=== PATIENT | female | born 1960 | race Hispanic/Latino ===

== ENCOUNTER 2022-11-16 19:15 | Emergency (ER) | payer MEDICARE, OTHER ==
[~2022-11-16] VITALS: Ht 160 cm; Wt 78.0 kg
[2022-11-16] MEDS ORDERED: KETOROLAC 15MG/ML VIAL (15MG/ML) IM SCH (21:00)
[2022-11-16] MEDS ORDERED: BACL5TAB PO (22:01)
[2022-11-16] MEDS ORDERED: DICL100G32 TP (22:01)
[2022-11-16 22:07] VITALS: BP 121/68
== END 2022-11-16 22:10 | disposition home or self-care (01) ==
LOC: EDH 19:15
DX: S80.11XA Contusion of right lower leg, initial encounter (principal); M25.561 Pain in right knee; M25.562 Pain in left knee; E11.9 Type 2 diabetes mellitus without complications; Z79.899 Other long term (current) drug therapy; Z98.890 Other specified postprocedural states; W10.8XXA Fall (on) (from) other stairs and steps, initial encounter; Y93.01 Activity, walking, marching and hiking; Y92.89 Other specified places as the place of occurrence of the external cause; Y99.8 Other external cause status
CPT/HCPCS: 99284; 73562; 73030; 73590; 96372; J1885

== ENCOUNTER 2022-12-09 02:56 | Emergency (ER) | payer OTHER ==
[~2022-12-09] VITALS: Ht 160 cm; Wt 75.7 kg
[~2022-12-09 02:56] MED LIST: BACL5TAB PO; DICL100G32 TP
[2022-12-09 02:58] VITALS: RESP 20
== END 2022-12-09 08:29 | disposition home or self-care (01) ==
LOC: EDH 02:56
DX: S81.802A Unspecified open wound, left lower leg, initial encounter (principal); E11.9 Type 2 diabetes mellitus without complications; Z95.5 Presence of coronary angioplasty implant and graft; W18.39XA Other fall on same level, initial encounter; Y93.89 Activity, other specified; Y92.89 Other specified places as the place of occurrence of the external cause; Y99.8 Other external cause status
CPT/HCPCS: 82948